=== PATIENT | male | born 1960 | race Caucasian/White ===

== ENCOUNTER 2018-05-29 13:27 | Emergency (ER) | payer SELFPAY ==
[~2018-05-29] VITALS: Ht 170.2 cm; Wt 86.0 kg
[2018-05-29 13:35] VITALS: BP 133/77
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
--- NOTE | 2018-05-29 13:55 | NUR ---
Dr. Bauman evaluating patient at bedside.
[2018-05-29] MEDS ORDERED: LORazepam 1 MG TAB PO ONE (14:10)
[2018-05-29] MEDS ORDERED: hydrOXYzine HCL 25 MG TAB PO ONE (14:10)
[2018-05-29 14:52] VITALS: BP 128/56
--- NOTE | 2018-05-29 14:52 | NUR ---
Patient discharged with v/s stable. Written and verbal after care instructions given and explained. Patient alert, oriented and verbalized understanding of instructions. Ambulatory with steady gait. All questions addressed prior to discharge. ID band removed. Patient advised to follow up with PMD. Rx of Tramadol, Baclofen given. Patient educated on indication of medication including possible reaction and side effects. Opportunity to ask questions provided and answered.
== END 2018-05-29 14:52 | disposition home or self-care (01) ==
LOC: MED 13:27
DX: M79.602 Pain in left arm (principal); R07.81 Pleurodynia; R10.9 Unspecified abdominal pain; Z04.1 Encounter for examination and observation following transport accident
CPT/HCPCS: 99283